=== PATIENT | male | born 1965 | race Caucasian/White ===

== ENCOUNTER 2023-08-11 12:15 | Emergency (ER) | payer BC, SELFPAY ==
[2023-08-11 12:17] VITALS: BP 156/92
[2023-08-11 13:23] VITALS: BMI 25.9
--- NOTE | 2023-08-11 14:13 | ED.GENMED ---
History of Present Illness
General
Chief Complaint: Abdominal Symptoms
Source: patient
Exam Limitations: none
Time Seen by Provider: 08/11/23 13:55
History of Present Illness
History of Present Illness:
57-year-old male presents complaining of abdominal pain and distention. He has not had a bowel movement in 9 days. He is nauseous but no vomiting. He notes a decreased appetite. 9 days ago he injured his back and he has been immobile since then.
He tried disimpacting himself several days ago and also has tried enemas. No significant relief with either of these. He is healthy otherwise. No other complaints at this time
Phy Exam
Physical Exam
Physical Exam:
General: Well-appearing male no acute respiratory distress
HEENT: Normocephalic atraumatic
Heart: Regular rate and rhythm no murmurs
Lungs: Clear to auscultation bilaterally no wheezing
Abdomen soft but distended decreased bowel sounds mildly diffusely tender no guarding
Rectal exam: No stool in the rectal vault
Course
Orders/Labs/Results
Orders:
Orders
08/11/23 12:22
CR Abdomen - 1 View Urgent
Comment:
Reason For Exam: constipation
08/11/23 14:11
CT Abd/pelvis W Iv Cont Urgent
Comment:
Reason For Exam: abodminal pain
08/11/23 14:19
Complete Blood Count/With Diff Urgent
Comprehensive Metabolic Panel Urgent
Abnormal Lab Results
08/11/23
14:19
WBC 14.3 H 10^3/uL
(4.8-10.8)
RBC 4.23 L 10^6/uL
(4.70-6.10)
Hct 38.0 L %
(39.0-52.0)
MCH 31.4 H pg
(27.0-31.0)
Plt Count 450 H 10^3/uL
(130-400)
Abs Immat Gran (auto) 0.1 H 10^3/uL
(0-0.05)
Absolute Neuts (auto) 11.8 H 10^3/uL
(1.4-6.5)
Absolute Monos (auto) 1.2 H 10^3/uL
(0.1-0.6)
Immature Gran % 0.6 H %
(0-0.5)
Neutrophils % 82.4 H %
(42.2-75.2)
Lymphocytes % 8.1 L %
(20.5-51.1)
Sodium 130 L mmol/L
(135-145)
Chloride 95 L mmol/L
(98-107)
Creatinine 0.6 L mg/dL
(0.7-1.3)
Glucose 117 H mg/dl
(70-99)
Alkaline Phosphatase 141 H U/L
(38-126)
Total Protein 6.2 L g/dl
(6.3-8.2)
08/11/23 14:19
08/11/23 14:19
Vital Signs
Initial and Last Documented VS:
Initial Vital Signs
Temp Pulse Resp BP Pulse Ox
98.1 F 79 16 156/92 96
08/11/23 12:17 08/11/23 12:17 08/11/23 12:17 08/11/23 12:17 08/11/23 12:17
Last Documented Vital Signs
Temp Pulse Resp BP Pulse Ox
98.1 F 79 16 156/92 96
08/11/23 12:17 08/11/23 12:17 08/11/23 12:17 08/11/23 12:17 08/11/23 12:17
MDM/Problems Addressed
Differential Diagnosis Includes:
Abdominal pain distention. Consider constipation versus bowel obstruction versus ileus
Abdominal x-rays ordered which demonstrate large amount of stool throughout the colon. No stool to disimpact on exam today. Given tenderness will order CT scan
*Critical Care Note
Total Time (30-74mins, 75-104mins- exclusive of procedures): Not Applicable
Update Note
Update Note:
CT shows moderate diffuse stool burden to suggest constipation. Nothing to disimpact on exam. Will send home with magnesium citrate. Patient did have cyst on his liver and his right kidney. This was relayed to the patient advised follow-up with
family doctor. Stable for discharge.
ED Attending Note
-
Portions of this chart may have been created with voice recognition software.� Occasional wrong word or��sound alike� substitutions may have occurred due to the inherent limitations of voice recognition software.
Discharge Plan
Departure
Patient Disposition: Home (Routine Discharge)
Date of Disposition: 08/11/23
Time of Disposition: 16:23
Patient with high blood pressure during this ER visit?: No
Discharge Problem:
Abdominal pain
Instructions: Constipation, Adult (DC)
Referrals:
Amor Hwang DO [Family Provider] -
Activity Restrictions/Additional Instructions:
Use magnesium citrate. Drink plenty of fluids otherwise. Continue with MiraLAX daily. Return if needed otherwise
Interventions
Interventions:
*Risk Screen - Suicide Last Done: 08/11/23 13:23
*General Assessment Last Done: 08/11/23 12:17
*Neglect/Abuse Screening Last Done: 08/11/23 13:23
ED- Fall Risk Assessment Last Done: 08/11/23 13:23
*ED COVID-19 Vaccine History Last Done: 08/11/23 12:17
HQ-Prnnck-Wvbrbexpvn Assessment Last Done: 08/11/23 13:23
Discharge Date and Time
Print Language: [id number]
[2023-08-11 14:37] LABS: % Basophils 0.4 % (0-2); % Eosinophils 0.4 % (0-6); % Immature Granulocytes 0.6 % (0-0.5); % Lymphocytes 8.1 % (20.5-51.1); % Monocytes 8.1 % (1.7-9.3); % Neutrophils 82.4 % (42.2-75.2); Absolute Basophils 0.1 10^3/uL (0-0.2); Absolute Eosinophils 0.1 10^3/uL (0-0.7); Absolute Immature Granulocytes 0.1 10^3/uL (0-0.05); Absolute Lymphocytes 1.2 10^3/uL (1.2-3.4); Absolute Monocytes 1.2 10^3/uL (0.1-0.6); Absolute Neutrophils 11.8 10^3/uL (1.4-6.5); Hemoglobin 13.3 g/dL (13.0-18.0); Mean Corpuscular Hgb 31.4 pg (27.0-31.0); Mean Corpuscular Volume 89.8 fL (80.0-94.0); Mean Platelet Volume 10.1 fL (7.4-10.4); Nucleated Red Blood Cells % 0 % (-); Platelet Count 450 10^3/uL (130-400); Red Blood Cell Count 4.23 10^6/uL (4.70-6.10); Red Cell Dist. Width 13.9 % (11.5-14.5); White Blood Cell Count 14.3 10^3/uL (4.8-10.8)
[2023-08-11 14:55] LABS: ALT (SGPT) 49 U/L (0-50); AST (SGOT) 28 U/L (17-59); Albumin 3.5 g/dl (3.5-5.0); Alkaline Phosphatase 141 U/L (38-126); Blood Urea Nitrogen 11 mg/dl (9-20); Calcium 9.5 mg/dl (8.4-10.2); Carbon Dioxide 28 mmol/L (22-30); Chloride 95 mmol/L (98-107); Estimated Creatinine Clearance > 125 ml/min; Glucose 117 mg/dl (70-99); Potassium 4.8 mmol/L (3.5-5.1); Sodium 130 mmol/L (135-145); Total Bilirubin 0.7 mg/dl (0.2-1.3); Total Protein 6.2 g/dl (6.3-8.2); eGFR > 60.00
[2023-08-11] MEDS: CITROMA 300 ML PO (16:27)
[2023-08-11 16:30] VITALS: BP 148/83
== END 2023-08-11 16:31 | disposition home or self-care (01) ==
LOC: EMR 12:15
PROVIDERS: Physician Assistant; EMERGENCY PHYSICIAN Emergency Medicine; FAMILY PHYSICIAN Family Medicine
DX: R10.9 Unspecified abdominal pain (principal)
CPT/HCPCS: 99284; 74018; 74177; 80053; 85025; Q9967